=== PATIENT | female | born 2000 | race Hispanic/Latino ===

== ENCOUNTER 2025-07-04 10:41 | Emergency (ER) | payer OTHER ==
[2025-07-04] MEDS ORDERED: Ibuprofen 200 MG TAB ONE (11:17)
== END 2025-07-04 12:45 | disposition home or self-care (01) ==
LOC: NAV ERS 10:41
DX: J11.1 Influenza due to unidentified influenza virus with other respiratory manifestations (principal)
CPT/HCPCS: 87081; 87428; 87430; 99283